=== PATIENT | female | born 1960 | race Caucasian/White ===

== ENCOUNTER 2023-03-17 08:11 | Outpatient (CLI) | payer BC | END 2023-03-17 08:12 | disposition home or self-care (01) | LOC: NM 08:11 | PROVIDERS: ATTEND Internal Medicine Hematology & Oncology | DX: C50.812 Malignant neoplasm of overlapping sites of left female breast (principal) | CPT/HCPCS: 71260; 74177; 78306; 82565; A9503 ==

== ENCOUNTER 2023-05-29 12:06 | Day surgery (SDC) | payer BC ==
[2023-05-29] MEDS ORDERED: Acetaminophen 500 MG TAB ONE (13:17)
[2023-05-29 17:47] VITALS: BP 137/85; TEMP 98.3
== END 2023-05-29 17:53 | disposition home or self-care (01) ==
LOC: ONC/OP 12:06
PROVIDERS: ATTEND Internal Medicine Hematology & Oncology
DX: D64.9 Anemia, unspecified (principal); D69.6 Thrombocytopenia, unspecified
CPT/HCPCS: 36430; 86850; 86900; 86901; J1642; P9016